=== PATIENT | female | born 1985 | race Caucasian/White ===

== ENCOUNTER 2017-09-02 17:49 | Inpatient (IN) | payer MEDICAID ==
[~2017-09-02 17:49] MED LIST: ONDANSETRON 4 MG INJ
[2017-09-02 18:53] LABS: ADD MAN DIFF? NO
[2017-09-02 18:54] LABS: BASOPHILS % 0.3 % (0.0-2.0); EOSINOPHILS % 0.4 % (0.0-7.0); HEMATOCRIT 32.8 % (37.0-47.0); HEMOGLOBIN 11.2 g/dl (12.0-16.0); LYMPHOCYTES # 1.1 10^3/ul (0.8-2.9); MEAN CORPUSCULAR HEMOGLOBIN 30.7 pg (29.0-33.0); MEAN CORPUSCULAR HGB CONC 34.1 g/dl (32.0-37.0); MEAN CORPUSCULAR VOLUME 89.9 fl (82.0-101.0); MEAN PLATELET VOLUME 12.7 fl (7.4-10.4); MONOCYTE # 0.4 10^3/ul (0.3-0.9); MONOCYTES % 5.1 % (0.0-11.0); NEUTROPHILS % 78.7 % (39.0-77.0); PLATELET COUNT 179 10^3/UL (140-415); RED BLOOD COUNT 3.65 10^6/ul (4.20-5.40); RED CELL DISTRIBUTION WIDTH 12.4 % (11.5-14.5)
[2017-09-02 18:54] LABS: WHITE BLOOD COUNT 7.6 10^3/ul (4.8-10.8)
[2017-09-02 18:59] LABS: INR 0.98; PROTIME 13.1 Sec (11.9-14.9)
[2017-09-02 19:00] LABS: PARTIAL THROMBOPLASTIN TIME 29.7 Sec (25.0-35.0)
[2017-09-02] MEDS ORDERED: OXYTOCIN 30 UNITS/LR 500 ML IV ×2 (19:00→23:00)
[2017-09-02] MEDS ORDERED: METHYLERGONOVINE 0.2 MG INJ IM ×2 (19:00→23:00)
[2017-09-02] MEDS ORDERED: CARBOPROST 250 MCG INJ IM ×2 (19:00→23:00)
[2017-09-02] MEDS ORDERED: MISOPROSTOL 200 MCG TAB PR ×2 (19:00→23:00)
[2017-09-02] MEDS ORDERED: ZOLPIDEM 5 MG TAB PO (19:30)
[2017-09-02] MEDS ORDERED: HYDROmorphONE 0.5 MG/0.5 ML SYG IV (19:30)
[2017-09-02] MEDS ORDERED: ONDANSETRON 4 MG INJ IV (19:30)
[2017-09-02] MEDS ORDERED: NALOXONE (0.4 MG/ML) INJ IV (19:30)
[2017-09-02] MEDS ORDERED: DIPHENHYDRAMINE 50 MG INJ IV (19:30)
[2017-09-02] MEDS ORDERED: ONDANSETRON 4 MG INJ (19:31)
[2017-09-02] MEDS ORDERED: CITRIC ACID/SODIUM CITRATE 15 ML CUP (19:31)
[2017-09-02] MEDS ORDERED: BUPIVACAINE 0.75%/DEXT (SPINAL) 2 ML INJ (19:33)
[2017-09-02] MEDS ORDERED: morphine SULFATE/PF (10 MG/10 ML) INJ (19:34)
[2017-09-02] MEDS ORDERED: FENTAnyl 50 MCG/ML VIAL (19:34)
[2017-09-02] MEDS: ONDANSETRON 4 MG INJ IV (19:53)
[2017-09-02] MEDS: CITRIC ACID/SODIUM CITRATE 15 ML CUP PO (19:54)
[2017-09-02] MEDS: LACTATED RINGER'S 1,000 ML IV (20:00)
[2017-09-02 20:38] LABS: RAPID PLASMA REAGIN NONREACTIVE (NR)
[2017-09-02] MEDS: CEFAZOLIN 2 GM/50 ML (PMX) 50 ML IVPB (20:55)
[2017-09-02] MEDS ORDERED: DEXAMETHASONE 4 MG/ML 1 ML INJ ×2 (21:09→21:10)
[2017-09-02] MEDS ORDERED: OXYTOCIN 10 UNIT INJ (22:12)
[2017-09-02] MEDS: DEXTROSE 5%-LR 1,000 ML IV (22:37)
[2017-09-02] MEDS ORDERED: METHYLERGONOVINE 0.2 MG TAB PO (23:00)
[2017-09-02] MEDS ORDERED: LANOLIN 7 GM TUBE TOP (23:00)
[2017-09-02] MEDS: HYDROmorphONE 0.5 MG/0.5 ML SYG IV (23:01)
[2017-09-03] MEDS: KETOROLAC 30 MG INJ IV ×2 (00:31→09:03)
[2017-09-03] MEDS: OXYTOCIN 30 UNITS/LR 500 ML IV ×3 (00:47→07:05)
[2017-09-03] MEDS: LACTATED RINGER'S 1,000 ML IV ×3 (02:45→18:45)
[2017-09-03] MEDS ORDERED: CEFAZOLIN 1 GM INJ IV (06:00)
[2017-09-03] MEDS: CEFAZOLIN 2 GM/50 ML (PMX) 50 ML IVPB ×3 (06:14→21:27)
[2017-09-03] MEDS: DEXTROSE 5%-LR 1,000 ML IV ×3 (06:37→22:37)
[2017-09-03] MEDS: SENNA/DOCUSATE NA (8.6MG/50MG) TAB PO ×2 (09:03→21:27)
[2017-09-03 09:38] LABS: ADD MAN DIFF? NO
[2017-09-03 09:43] LABS: BASOPHILS % 0.1 % (0.0-2.0); EOSINOPHILS % 0.1 % (0.0-7.0); HEMATOCRIT 30.5 % (37.0-47.0); HEMOGLOBIN 10.5 g/dl (12.0-16.0); LYMPHOCYTES # 1.2 10^3/ul (0.8-2.9); LYMPHOCYTES % 13.7 % (15.0-51.0); MEAN CORPUSCULAR HEMOGLOBIN 30.9 pg (29.0-33.0); MEAN CORPUSCULAR HGB CONC 34.4 g/dl (32.0-37.0); MEAN CORPUSCULAR VOLUME 89.7 fl (82.0-101.0); MEAN PLATELET VOLUME 12.8 fl (7.4-10.4); MONOCYTE # 0.6 10^3/ul (0.3-0.9); MONOCYTES % 7.1 % (0.0-11.0); NEUTROPHIL # 6.9 10^3/ul (1.6-7.5); NEUTROPHILS % 78.8 % (39.0-77.0); PLATELET COUNT 169 10^3/UL (140-415); RED CELL DISTRIBUTION WIDTH 12.4 % (11.5-14.5)
[2017-09-03 09:43] LABS: WHITE BLOOD COUNT 8.8 10^3/ul (4.8-10.8)
[2017-09-03] MEDS ORDERED: OXYCODONE/ACETAMINOPHEN (5/325) TAB PO (19:30)
[2017-09-03] MEDS: OXYCODONE/ACETAMINOPHEN (5/325) TAB PO (22:00)
[2017-09-03] MEDS: IBUPROFEN 800 MG TAB PO (22:11)
[2017-09-04] MEDS: LACTATED RINGER'S 1,000 ML IV (02:45)
[2017-09-04] MEDS: OXYCODONE/ACETAMINOPHEN (5/325) TAB PO ×3 (05:19→21:31)
[2017-09-04] MEDS: IBUPROFEN 800 MG TAB PO ×3 (05:19→21:31)
[2017-09-04] MEDS: DEXTROSE 5%-LR 1,000 ML IV (06:37)
[2017-09-04] MEDS: SENNA/DOCUSATE NA (8.6MG/50MG) TAB PO ×2 (08:55→21:31)
[2017-09-04] MEDS: BISACODYL 10 MG SUPP PR (15:51)
[2017-09-04] MEDS: LABETALOL 200 MG TAB PO ×2 (16:30→21:33)
[2017-09-05] MEDS: OXYCODONE/ACETAMINOPHEN (5/325) TAB PO ×2 (05:34→11:30)
[2017-09-05] MEDS: IBUPROFEN 800 MG TAB PO ×2 (05:34→13:44)
[2017-09-05] MEDS ORDERED: MEASLES,MUMPS,RUBELLA VACCINE INJ SC* (09:00)
[2017-09-05] MEDS: SENNA/DOCUSATE NA (8.6MG/50MG) TAB PO (09:03)
[2017-09-05] MEDS: LABETALOL 200 MG TAB PO (09:04)
[2017-09-05] MEDS: DIPHTH/TET/ACEL PERTUSS (ADULT) 0.5 ML VIAL IM* (09:06)
== END 2017-09-05 14:15 | disposition home or self-care (01) | DRG 765 ==
LOC: L-D 17:49 → PP1 09-03 01:28
PROVIDERS: Obstetrics & Gynecology
PROC: 10D00Z1 Extraction of Products of Conception, Low, Open Approach (ICD-10-PCS; principal; 2017-09-02 19:30)
DX: O10.92 Unspecified pre-existing hypertension complicating childbirth (principal); O24.420 Gestational diabetes mellitus in childbirth, diet controlled; O99.214 Obesity complicating childbirth; E66.01 Morbid (severe) obesity due to excess calories; O34.211 Maternal care for low transverse scar from previous cesarean delivery; Z68.42 Body mass index [BMI] 45.0-49.9, adult; Z3A.38 38 weeks gestation of pregnancy; Z37.0 Single live birth
CPT/HCPCS: 82962; 85025; 85610; 85730; 86592; 86850; 86900; 86901; 90715; 99464

== ENCOUNTER 2017-09-22 17:04 | Inpatient (IN) | payer MEDICAID ==
[2017-09-22 20:01] LABS: ADD MAN DIFF? NO
[2017-09-22] MEDS: LABETALOL HCL 20MG INJ IV ×2 (20:14→20:18)
[2017-09-22 20:15] LABS: WHITE BLOOD COUNT 6.4 10^3/ul (4.8-10.8)
[2017-09-22 20:15] LABS: BASOPHILS % 0.3 % (0.0-2.0); EOSINOPHILS # 0.2 10^3/ul (0.0-0.5); EOSINOPHILS % 3.6 % (0.0-7.0); HEMATOCRIT 39.6 % (37.0-47.0); HEMOGLOBIN 12.9 g/dl (12.0-16.0); LYMPHOCYTES % 31.4 % (15.0-51.0); MEAN CORPUSCULAR HEMOGLOBIN 29.1 pg (29.0-33.0); MEAN CORPUSCULAR HGB CONC 32.6 g/dl (32.0-37.0); MEAN CORPUSCULAR VOLUME 89.4 fl (82.0-101.0); MONOCYTE # 0.4 10^3/ul (0.3-0.9); MONOCYTES % 6.1 % (0.0-11.0); NEUTROPHIL # 3.8 10^3/ul (1.6-7.5); NEUTROPHILS % 58.6 % (39.0-77.0); PLATELET COUNT 263 10^3/UL (140-415); RED BLOOD COUNT 4.43 10^6/ul (4.20-5.40); RED CELL DISTRIBUTION WIDTH 12.1 % (11.5-14.5)
[2017-09-22] MEDS: MAGNESIUM SULFATE 4 GM/100 ML 100 ML IVPB (20:16)
[2017-09-22] MEDS ORDERED: ACETAMINOPHEN 325 MG TAB PO (20:30)
[2017-09-22] MEDS ORDERED: ONDANSETRON 4 MG INJ IV (20:30)
[2017-09-22 20:33] LABS: ALANINE AMINOTRANSFERASE 49 IU/L (13-69); ALBUMIN 4.6 g/dl (3.3-4.9); ALBUMIN/GLOBULIN RATIO 1.48; ALKALINE PHOSPHATASE 98 IU/L (42-121); ANION GAP 13 (8-16); ASPARTATE AMINO TRANSFERASE 41 IU/L (15-46); BILIRUBIN,INDIRECT 0.5 mg/dl (0-1.1); BILIRUBIN,TOTAL 0.5 mg/dl (0.2-1.3); BLOOD UREA NITROGEN 11 mg/dl (7-20); CALCIUM 9.4 mg/dl (8.4-10.2); CARBON DIOXIDE 24 mmol/L (21-31); CHLORIDE 108 mmol/L (97-110); CREATININE 0.62 mg/dl (0.44-1.00); GLUCOSE 102 mg/dl (70-220); SODIUM 141 mmol/L (135-144); TOTAL PROTEIN 7.7 g/dl (6.1-8.1)
[2017-09-22 20:47] LABS: ADD UMIC YES; UR ASCORBIC ACID NEGATIVE (NEGATIVE); UR BACTERIA FEW /HPF (NONE SEEN); UR BILIRUBIN (Dip) NEGATIVE (NEGATIVE); UR BLOOD (Dip) 3+ mg/dL (NEGATIVE); UR CALCIUM OXALATE CRYSTAL FEW /HPF (NONE SEEN); UR CLARITY CLEAR (CLEAR); UR COLOR STRAW (YELLOW); UR GLUCOSE (Dip) NEGATIVE (NEGATIVE); UR KETONES (Dip) NEGATIVE (NEGATIVE); UR LEUKOCYTE ESTERASE (Dip) TRACE Leu/ul (NEGATIVE); UR NITRITE (Dip) NEGATIVE (NEGATIVE); UR RBC 149 /HPF (0-5); UR SPECIFIC GRAVITY (Dip) 1.005 (1.003-1.030); UR TOTAL PROTEIN (Dip) NEGATIVE (NEGATIVE); UR UROBILINOGEN (Dip) NEGATIVE (NEGATIVE); UR WBC 29 /HPF (0-5)
[2017-09-23] MEDS: hydrALAzine 20 MG INJ IV ×2 (00:27→23:31)
[2017-09-23] MEDS: CEFTRIAXONE 1 GM/50 ML (PMX) 50 ML IVPB (06:24)
[2017-09-23 09:14] LABS: ADD MAN DIFF? NO
[2017-09-23 09:22] LABS: BASOPHILS % 0.3 % (0.0-2.0); EOSINOPHILS # 0.2 10^3/ul (0.0-0.5); HEMATOCRIT 40.2 % (37.0-47.0); HEMOGLOBIN 12.9 g/dl (12.0-16.0); LYMPHOCYTES # 1.9 10^3/ul (0.8-2.9); LYMPHOCYTES % 31.8 % (15.0-51.0); MEAN CORPUSCULAR HEMOGLOBIN 28.9 pg (29.0-33.0); MEAN CORPUSCULAR HGB CONC 32.1 g/dl (32.0-37.0); MEAN CORPUSCULAR VOLUME 89.9 fl (82.0-101.0); MEAN PLATELET VOLUME 12.3 fl (7.4-10.4); MONOCYTE # 0.5 10^3/ul (0.3-0.9); MONOCYTES % 7.7 % (0.0-11.0); NEUTROPHIL # 3.4 10^3/ul (1.6-7.5); NEUTROPHILS % 56.9 % (39.0-77.0); PLATELET COUNT 252 10^3/UL (140-415); RED BLOOD COUNT 4.47 10^6/ul (4.20-5.40); RED CELL DISTRIBUTION WIDTH 12.5 % (11.5-14.5)
[2017-09-23 09:53] LABS: ALANINE AMINOTRANSFERASE 53 IU/L (13-69); ALKALINE PHOSPHATASE 87 IU/L (42-121); ANION GAP 12 (8-16); ASPARTATE AMINO TRANSFERASE 41 IU/L (15-46); BILIRUBIN,INDIRECT 0.8 mg/dl (0-1.1); BILIRUBIN,TOTAL 0.8 mg/dl (0.2-1.3); BLOOD UREA NITROGEN 11 mg/dl (7-20); CARBON DIOXIDE 25 mmol/L (21-31); CHLORIDE 108 mmol/L (97-110); CREATININE 0.65 mg/dl (0.44-1.00); GLUCOSE 108 mg/dl (70-220); POTASSIUM 3.8 mmol/L (3.5-5.1); SODIUM 141 mmol/L (135-144); TOTAL PROTEIN 7.1 g/dl (6.1-8.1)
[2017-09-23 09:54] LABS: ALBUMIN/GLOBULIN RATIO 1.29
[2017-09-23] MEDS: LABETALOL 100 MG TAB PO ×2 (15:29→23:30)
[2017-09-23] MEDS: DOCUSATE SODIUM 100 MG CAP PO ×2 (15:49→20:24)
[2017-09-23] MEDS: ACETAMINOPHEN 325 MG TAB PO (22:34)
[2017-09-24] MEDS: hydrALAzine 20 MG INJ IV (05:20)
[2017-09-24] MEDS: CEFTRIAXONE 1 GM/50 ML (PMX) 50 ML IVPB (05:37)
[2017-09-24] MEDS: ACETAMINOPHEN 325 MG TAB PO ×2 (06:32→13:52)
[2017-09-24] MEDS: DOCUSATE SODIUM 100 MG CAP PO (09:54)
[2017-09-24] MEDS: LABETALOL 100 MG TAB PO (09:54)
== END 2017-09-24 16:44 | disposition home or self-care (01) | DRG 776 ==
LOC: E/R 17:04 → MS4 20:04
DX: O11.5 Pre-existing hypertension with pre-eclampsia, complicating the puerperium (principal); N39.0 Urinary tract infection, site not specified; I16.0 Hypertensive urgency
CPT/HCPCS: 36415; 80053; 81001; 85025; 87086; 93005; 99285-25